=== PATIENT | female | born 1950 | race Caucasian/White ===

== ENCOUNTER 2018-03-29 07:57 | Day surgery (SDC) | payer OTHER ==
[2018-03-26 14:07] LABS: Absolute Lymphocytes (CBC) 1.6 K/uL (0.7-4.9); Absolute Monocytes 0.5 K/uL (0.1-1.3); Absolute Neutrophil 5.8 K/uL (1.8-8.0); Basophils % 0.3 % (0-1.3); Eosinophils % 0.9 % (0-4.4); Lymphocytes % 20.1 % (15.3-44.8); MPV 8.9 fL (7.6-11.3); Monocytes % 6.5 % (3.3-12.3); RBC Red Blood Cell Count 4.49 M/uL (3.86-4.86)
[2018-03-26 14:16] LABS: BUN Blood Urea Nitrogen 12 mg/dL (7-18); Bicarbonate 30 mmol/L (21-32); Glucose Level 95 mg/dL (74-106); Potassium 4.2 mmol/L (3.5-5.1); Sodium Level 140 mmol/L (136-145)
--- NOTE | 2018-03-26 14:36 | RAD REPORT ---
EXAM DESCRIPTION: RAD - Chest Pa And Lat (2 Views) - 03/26/2018 2:17 pm CLINICAL HISTORY: preop for surgery Chest pain. COMPARISON: Chest Single View dated 01/18/2017; Chest Single View dated 06/20/2016; Chest Single View dated 06/19/2016; CHEST SINGLE VIEW dated 03/23/2015 FINDINGS: The lungs are clear. The heart is upper limit of normal in size. No displaced fractures. A ortic atherosclerosis.
--- NOTE | 2018-03-26 21:21 | EKG ---
Test Date: 2018-03-26 Test Time: 13:52:03 Service Vehicle Operator: SE MEASUREMENT RESULTS: Intervals: Rate: 62 CO: 132 QRSD: 80 QT: 406 QTc: 412 [place]: P: 77 CO: 132 QRS: 52 T: 65 INTERPRETIVE STATEMENTS: Normal sinus rhythm Normal ECG Compared to ECG 01/19/2017 02:42:57 Sinus bradycardia no longer present Sinus arrhythmia no longer present Incomplete right bundle-branch block no longer present Electronically Signed On 03-26-18 21:20:16 [employer]ODY SHOP SUPERVISOR by Dipak Haines
[~2018-03-29 07:57] MED LIST: LEVOFLOXACIN 750MG/D5W 150 ML IV SCH
[2018-03-29] MEDS ORDERED: Levofloxacin 750mg IV 750 MG/150 ML BAG IV ONE (08:21)
[2018-03-29] MEDS: Ringers Lactate 1,000 ML IV ONE ×2 (08:25→09:45)
[2018-03-29] MEDS ORDERED: BUPIVACAINE 0.5% PF 10 ML VIAL ONE (08:41)
[2018-03-29] MEDS ORDERED: SCOPOLAMINE HYDROBROMIDE PATCH TD ONE (09:05)
[2018-03-29] MEDS ORDERED: FENTANYL CITR 100 MCG/2 ML ONE (09:49)
[2018-03-29] MEDS ORDERED: LIDOCAINE 1% MPF 5 ML VIAL ONE (09:49)
[2018-03-29] MEDS ORDERED: MIDAZOLAM HCL 2 MG/2 ML INJ ONE (09:49)
[2018-03-29] MEDS ORDERED: PROPOFOL 200 MG/20 ML VIAL IV ONE (09:49)
--- NOTE | 2018-03-29 10:10 | P.BOP ---
Preoperative diagnosis: infective back subQ with abscess Postoperative diagnosis: same Primary procedure: Excision of infected back subQ [id number] with abscess Estimated blood loss: <10cc Specimen: infected Findings: mass and abscess Anesthesia: General Complications: None Drain(s): Other Transferred to: Recovery Room Condition: Good
[2018-03-29] MEDS ORDERED: EPHEDRINE SULF 50 MG/10 ML SYR ONE (10:20)
[2018-03-29] MEDS ORDERED: NS 0.9% VIAL 10 ML ONE (10:20)
[2018-03-29] MEDS ORDERED: KETOROLAC 30 MG/ML INJ ONE (10:23)
[2018-03-29] MEDS ORDERED: ONDANSETRON 4 MG/2 ML VIAL ONE ×2 (10:24→11:18)
[2018-03-29] MEDS ORDERED: CODEINE 30MG/APAP 300MG TAB ONE (11:48)
[2018-03-29 12:16] VITALS: BP 120/88; TEMP 98.5; O2SAT 97
--- NOTE | 2018-03-29 22:30 | OP ---
Date of Procedure: 03/29/2018 Surgeon: Jesse Huerta MD Preoperative Diagnosis: Infected back subcutaneous mass with abscess. Postoperative Diagnosis: Infected back subcutaneous mass with abscess. Procedure: Excision of infected back subcutaneous mass 5 x 4 x 2 cm with abscess drainage. Estimated Blood Loss: Less than 10 cc. Specimen: Infected mass with abscess. Findings: Mass with abscess. Anesthesia: General plus local. Wound Care: Wet-to-dry, normal saline. Indications: This is the case of a 67-year-old patient who comes to us with back mass red, warm, inc reasing in size and shape and tenderness. The patient was diagnosed with infected back mass with abs cess. The patient wanted the mass excised and abscess relieved, so we are going to combine 2 of them together with benefits, alternatives, and risks including, but not limited to infection, bleeding, d amage to adjacent structures as complication, nonhealing wound, CA, and even . She also underst ands this might not relieve any symptoms. She might need more than one surgical intervention. She u nderstood, signed a consent. Description Of Procedure: The patient was brought to the operating room, placed in supine position. Anesthesia was done without complication. Back was prepped and draped in a sterile fashion. A time -out was called. Area of concern was previously marked by me and the patient in the holding room. T he patient's areas all infected, so we proceeded to use a knife and a Bovie cauterizer to remove the mass all the way down to some of the fascia of the muscle comes with the specimen. Muscle system not to be penetrated with abscess. Loculations were explored and opened. The mass was completely excis ed. Cultures were obtained of the purulent discharge. The area was profusely irrigated. Hemostasis obtained. Local anesthetics applied and the area was packed with wet-to-dry dressing. The patient tolerated the procedure well. The patient was sent to recovery room in stable condition. CRYSTAL/SHALA Voice ID: [id number] Report ID: [id number]
--- NOTE | 2018-03-29 22:30 | DS ---
Date of Discharge: 03/29/2018 Diagnosis: Infected back mass with abscess. Procedure: Excision of infected back subcutaneous mass with abscess drainage. Disposition: Home. Discharge Instructions: The patient will be taking Levaquin and she has multi allergies to multiple medications except Levaquin. Wet-to-dry dressing daily. Follow up in my office in 1 week. Call for appointment [phone]. CRYSTAL/SHALA Voice ID: [id number] Report ID: [id number]
== END 2018-03-29 12:30 | disposition home or self-care (01) ==
LOC: OR 07:57
PROVIDERS: ATTEND Surgery
PROC: 0J970ZZ Drainage of Back Subcutaneous Tissue and Fascia, Open Approach (ICD-10-PCS; 2018-03-29)
PROC: 0JB70ZZ Excision of Back Subcutaneous Tissue and Fascia, Open Approach (ICD-10-PCS; principal; 2018-03-29 09:30)
DX: L72.0 Epidermal cyst (principal); L02.212 Cutaneous abscess of back [any part, except buttock and flank]; I10 Essential (primary) hypertension; J45.909 Unspecified asthma, uncomplicated; M19.90 Unspecified osteoarthritis, unspecified site; M79.7 Fibromyalgia; R53.82 Chronic fatigue, unspecified; K21.9 Gastro-esophageal reflux disease without esophagitis; E78.00 Pure hypercholesterolemia, unspecified; Z88.8 Allergy status to other drugs, medicaments and biological substances; Z88.3 Allergy status to other anti-infective agents; Z91.041 Radiographic dye allergy status; Z91.040 Latex allergy status; Z82.49 Family history of ischemic heart disease and other diseases of the circulatory system; Z83.3 Family history of diabetes mellitus; Z80.0 Family history of malignant neoplasm of digestive organs; Z80.52 Family history of malignant neoplasm of bladder
CPT/HCPCS: 10060; 11406; 36415; 71046; 80048; 85025; 87070; 87075; 87205; 88304; 93005; J2250; J2405 ×2; J2704; J3010

== ENCOUNTER 2024-12-29 17:51 | Emergency (ER) | payer OTHER ==
[2024-12-29] MEDS ORDERED: MORPHINE 2 MG/ML SYR ONE (18:25)
[2024-12-29] MEDS ORDERED: FAMOTIDINE 20 MG/2 ML VIAL IV ONE (18:25)
[2024-12-29] MEDS ORDERED: MAGNES/ALUMIN/SIMET 30ML UCUP ONE (18:25)
[2024-12-29] MEDS ORDERED: LIDOCAINE VISCOUS 2% 10ML ORAL SOLN ONE (18:25)
[2024-12-29] MEDS ORDERED: NA CHLORIDE 0.9% 1,000 ML ONE (18:26)
--- NOTE | 2024-12-29 18:36 | RAD REPORT ---
EXAMINATION: CT ABDOMEN AND PELVIS WITHOUT CONTRAST CLINICAL INDICATION: ABD PAIN TECHNIQUE: CT abdomen and pelvis was performed, without IV contrast, as per department protocol. Axia l, sagittal and coronal reconstructions were obtained. One or more of the following dose reduction techniques were used: Automated exposure control, adjustment of the mA and kV according to the patien t size, and iterative reconstruction. Unless otherwise specified, incidental findings do not require dedicated imaging follow-up. COMPARISON: No prior exam. FINDINGS: The lack of intravenous contrast limits the sensitivity of this exam for evaluation of solid visceral organs, vascular structures, and retroperitoneum. LOWER CHEST: The visualized lung bases are clear. Small hiatal hernia. LIVER:15 mm cyst is seen inferior right lobe of the liver. The liver is otherwise unremarkable. Mary cystectomy clips. 23 mm rounded structure seen in the region of the hepatic hilum/pancreatic head, unclear etiology. SPLEEN: Normal size. No focal lesion. PANCREAS: No mass, ductal dilation, or jeniffer-pancreatic fluid. ADRENALS: Normal; no mass. KIDNEYS AND URETERS: Normal size and contour. No hydronephrosis. Multiple bilateral renal cysts, simp le in appearance. URINARY BLADDER: Normal contour. GASTROINTESTINAL TRACT: No evidence of bowel obstruction, significant free fluid, free air or abscess . Sigmoid diverticulosis coli. Postsurgical changes of gastric bypass. APPENDIX: Appendix not visualized, but no inflammatory changes in region of appendix. LYMPH NODES: No lymphadenopathy. MUSCULOSKELETAL: Moderate multilevel spinal degenerative changes. ADDITIONAL FINDINGS: Aortic atherosclerosis. IMPRESSION: 23 mm rounded near the hepatic hilum and pancreatic head is of unclear etiology and significance.It i s unlikely to represent an acute finding. Follow-up nonemergent contrast-enhanced CT or MRI may be considered. Sigmoid diverticulosis coli.
[2024-12-29 18:43] LABS: Absolute Lymphocytes (CBC) 0.8 K/uL (0.7-4.9); Hematocrit 36.9 % (36.0-45.0); Hemoglobin 12.1 g/dL (12.0-15.0); MCH 30.6 pg (27.0-35.0); MCHC 32.9 g/dL (32.0-36.0); MCV 92.9 fL (80-100); MPV 8.1 fL (7.6-11.3); Nucleated RBC Absolute Count 0.0 (0-0); Nucleated Red Blood Cells % 0.0 % (0-0); RBC Red Blood Cell Count 3.97 M/uL (3.86-4.86); White Blood Count 10.00 thou/uL (4.3-10.9)
[2024-12-29 19:03] LABS: ALT/SGPT 132.0 U/L (13-56); AST/SGOT 413.0 U/L (15-37); Albumin 3.1 g/dL (3.4-5.0); Albumin/Globulin Ratio 0.7 (1.1-1.8); Alkaline Phosphatase 228.0 U/L (45-117); Anion Gap 8.5 mEq/L (5.0-15.0); BUN Blood Urea Nitrogen 17.0 mg/dL (7-18); Globulin 4.2 g/dL (2.3-3.5); Glucose Level 113.0 mg/dL (74-106); Lipase 13.0 U/L (13-75); Potassium 3.5 mEq/L (3.5-5.1); Troponin High Sensitivity 11.0 pg/mL (<58.9)
--- NOTE | 2024-12-29 19:26 | EDPHYS ---
Physician Documentation [facility] Name: Emani Prakash Age: 74 yrs Sex: Female : 1950 Arrival Date: 12/29/2024 Time: 17:51 Bed 15 Private MD: ED Physician Benoit Miner HPI: 12/29 18:38 This 74 yrs old Female presents to ER via EMS with complaints of Epigastric dr5 Pain. 18:38 The patient presents with abdominal pain in the epigastric area. Onset: The dr5 symptoms/episode began/occurred acutely. Patient is a 74-year-old female with history of fibromyalgia, hypertension, sleep apnea, ulcers with cholecystectomy, appendectomy, complete hysterectomy, gastric bypass surgery coming in with epigastric abdominal pain that started when she was walking in her garage. Patient reports pain was so bad that she had to call 911. Patient was given IV Tylenol and normal saline and Reglan IV prior to arrival which improved her pain.. Historical: - Allergies: 18:13 Bactrim; rg5 18:13 Iodine; rg5 18:13 Latex; rg5 - PMHx: 18:13 Fibromyalgia; Hypertension; Sleep Apnea; Ulcers; rg5 - Immunization history:: Adult Immunizations unknown. - Infectious Disease History:: Denies. - Social history:: Smoking status: Patient denies any tobacco usage or history of. ROS: 18:38 Constitutional: as per hpi dr5 Exam: 18:38 Constitutional: This is a well developed, well nourished patient who is awake, alert, dr5 and in no acute distress. Head/Face: Normocephalic, atraumatic. Eyes: Pupils equal round and reactive to light, extra-ocular motions intact. Lids and lashes normal. Conjunctiva and sclera are non-icteric and not injected. Cornea within normal limits. Periorbital areas with no swelling, redness, or edema. Neck: Trachea midline, no thyromegaly or masses palpated, and no cervical lymphadenopathy. Supple, full range of motion without nuchal rigidity, or vertebral point tenderness. No Meningismus. Chest/axilla: Normal chest wall appearance and motion. Nontender with no deformity. No lesions are appreciated. Cardiovascular: Regular rate and rhythm with a normal S1 and S2. Normal PMI, no JVD. No pulse deficits. Respiratory: Lungs have equal breath sounds bilaterally, clear to auscultation. No rales, rhonchi or wheezes noted. No increased work of breathing, no retractions or nasal flaring. 18:38 Abdomen/GI: Inspection: abdomen appears normal, Bowel sounds: normal, Palpation: moderate abdominal tenderness, in the epigastric area, Vital Signs: 18:13 BP 182 / 96; Pulse 81; Resp 18; Pulse Ox 100% ; Pain 5/10; rg5 19:34 BP 174 / 86; Pulse 77; Resp 18; Pulse Ox 97% ; dr5 19:35 BP 174 / 84; Pulse 77; Resp 18; Pulse Ox 98% ; rg5 19:39 Temp 98.5(O); dr5 19:56 Weight 63.05 kg; Height 4 ft. 10 in. ; dr5 20:37 BP 171 / 74; Pulse 81; Resp 18; Pulse Ox 98% ; Pain 7/10; rg5 21:30 BP 169 / 88; Pulse 75; Resp 18; Pulse Ox 100% ; rg5 22:10 BP 181 / 96; Pulse 94; Resp 18; Pulse Ox 97% ; rg5 22:43 BP 164 / 78; Pulse 69; Resp 18; Pulse Ox 99% on R/A; rg5 23:12 BP 138 / 66; Pulse 68; Resp 18; Pulse Ox 97% on R/A; rg5 12/30 00:00 BP 127 / 68; Pulse 67; Resp 18; Pulse Ox 99% on R/A; Pain 0/10; rg5 12/29 19:56 Body Mass Index 29.05 (63.05 kg, 147.32 cm) dr5 12/29 18:13 Pain Scale: Adult rg5 20:37 Pain Scale: Adult rg5 12/30 00:00 Pain Scale: Adult rg5 MDM: 12/29 18:01 Medical Screening Exam initiated dr5 19:28 Differential diagnosis: gastritis, non-specific abd pain, Transaminitis, mass. Data dr5 reviewed: vital signs, nurses notes, lab test result(s), cardiac enzymes, troponin i, CBC, white blood cell count, hemoglobin, hematocrit, platelets, electrolytes, sodium, potassium, chloride, serum bicarbonate, BUN, creatinine, serum glucose, hepatic panel, EKG, radiologic studies, CT scan. Consideration of Admission/Observation Patient was admitted/placed on observation. Independent interpretation of the following test(s) in the Emergency Department CT Scan: My interpretation is Independent interpretation of CT shows large mass around pancreatic head. Historians other than the Patient: Spouse/Significant Other: . Daughter/Son: Daughter. Care significantly affected by the following chronic conditions: Pharmacology, hypertension, sleep apnea, ulcers. Care significantly affected by the following Social Determinants of Health: Poor access to healthcare and/or lack of insurance, Poor access to transportation, Problems related to employment. Counseling: I had a detailed discussion with the patient and/or guardian regarding the historical points, exam findings, and any diagnostic results supporting the discharge/admit diagnosis, the presence of at least one elevated blood pressure reading (>120/80) during this emergency department visit, lab results, radiology results, the need to transfer to another facility, for higher level of care, [facility] does not immediately have the required specialist, Patient requires GI services. Medication response: Morphine, normal saline, GI cocktail, Pepcid. Response to treatment: the patient's symptoms have markedly improved after treatment. Awaiting: transfer to another facility. ED course: Discussed with patient as well as daughter and in room the need for transfer to other facility given we do not have GI here. All labs discussed with patient at length including transaminitis and unclear 23 mm cystic structure.. 20:05 Management of patient was discussed with the following: Hospitalist: Dr. Watters - [facility] Hospitalist who accepted patient.. 12/29 18:01 Order name: CBC with Diff; Complete Time: 19: [facility] 12/29 18:01 Order name: CMP; Complete Time: 19: [facility] 12/29 18: Order name: Lipase; Complete Time: 19: [facility] 12/29 18:01 Order name: Troponin High Sensitivity; Complete Time: 19: [facility] 12/29 18:01 Order name: CT Abd/Pelvis - Without Contrast; Complete Time: 18:37 [facility] 12/29 19:07 Order name: US Liver Only; Complete Time: 11:26 [facility] 12/29 18:01 Order name: EKG; Complete Time: 18: [facility] 12/29 18:01 Order name: IV Saline Lock; Complete Time: 18:19 [facility] 12/29 18:01 Order name: Labs collected and sent; Complete Time: 18:44 [facility] 12/29 18: Order name: EKG - Nurse/Tech; Complete Time: 18:44 dr5 EC:42 Rate is 79 beats/min. Rhythm is regular. QRS [place] is Normal. [place] interval is normal at dr5 156 msec. QRS interval is normal at 86 msec. QT interval is normal at 400 msec. Clinical impression: Normal ECG and No evidence of ischemia. Administered Medications: 18:05 Drug: morphine IVP or IV 4 mg IVP once over 4 mins Route: IVP; Infused Over: 4 mins; rg5 Site: right antecubital; 20:00 Follow up: Response: No adverse reaction; Pain is decreased rg5 18:05 Drug: NS 0.9% IV 1000 ml IV at 1 bolus Per protocol; to be given as a bolus over 60 rg5 minutes Route: IV; Rate: 1 bolus; Site: right antecubital; 20:00 Follow up: IV Status: Completed infusion; IV Intake: 1000ml rg5 18:25 Drug: Famotidine IVP 20 mg IVP once; dilute with 10 mL 0.9% NaCl; give over 2 minutes rg5 Route: IVP; Site: right antecubital; 20:00 Follow up: Response: No adverse reaction; Pain is decreased rg5 18:43 Drug: GI Cocktail without - (Maalox PO 30 ml, Lidocaine Mucous Membrane 2 % 15 rg5 ml) PO once Route: PO; 20:01 Follow up: Response: No adverse reaction rg5 20:11 Drug: HYDROmorphone IVP 0.5 mg IVP once Route: IVP; Site: right antecubital; rg5 20:37 Follow up: Response: No adverse reaction; Pain is decreased rg5 21:35 Drug: cloNIDine PO 0.1 mg PO once Route: PO; rg5 22:14 Follow up: Response: No adverse reaction; Blood pressure is lowered rg5 22:36 Drug: metoCLOPramide IVP 10 mg IVP once; over 1 to 2 minutes Route: IVP; Site: right rg5 antecubital; 23:07 Follow up: Response: No adverse reaction rg5 22:40 Drug: cloNIDine PO 0.1 mg PO once Route: PO; rg5 23:07 Follow up: Response: No adverse reaction; Blood pressure is lowered rg5 Disposition: 12/30 03:13 Co-signature as Attending Physician, Benoit Miner MD I agree with the assessment sp4 and plan of care. I reviewed the patient's care provided by Advanced Practice Provider \T\ agree w/ the diagnosis \T\ care plan. I personally saw the pt \T\ performed a substantive portion of the visit, incldng all aspects of the (History/Exam/Medical Decision Making). Disposition Summary: 12/29/24 19:26 Transfer Ordered Notes: Transfer Location: [facility] dr5 Reason: Higher level of care dr5 Condition: Stable dr5 Problem: new dr5 Symptoms: have worsened dr5 Accepting Physician: Carissa Toney(12/30/24 00:08) rg5 Diagnosis - Nonspecific elevation of levels of transaminase and lactic acid dehydrogenase [LDH] dr5 - Elevated AST, ALT, ALK - Disease of pancreas, unspecified - 23 mm rounded structure of pancreatic head dr5 Forms: - Medication Reconciliation Form dr5 - SBAR form dr5 Signatures: Dispatcher [employer] EDBenoit Brooks MD MD sp4 Holley Tai Rommel, RN RN rg5 Fred Garcia FNP-C URINALYSIS TECHNICIAN-Cdr5 Corrections: (The following items were deleted from the chart) 12/29 23:15 19:26 [facility] dr5 vk 12/30 00:08 12/29 23:15 Carissa Toney vk rg5
--- NOTE | 2024-12-29 19:26 | ER ---
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 rg5 Coronavirus screen: Client denies travel out of the [place] in the last 14 days. Ebola Screen: Patient negative for fever greater than or equal to 101.5 degrees Fahrenheit, and additional compatible Ebola Virus Disease symptoms Patient denies exposure to infectious person. Patient denies travel to an Ebola-affected area in the 21 days before illness onset. Initial Sepsis Screen: Does the patient meet any 2 criteria? No. Patient's initial sepsis screen is negative. Does the patient have a suspected source of infection? No. Patient's initial sepsis screen is negative. Risk Assessment: Do you want to hurt yourself or someone else? Patient reports no desire to harm self or others. Onset of symptoms was December 29, 2024. Care prior to arrival: Medication(s) given: Normal saline infusion, 250 Tylenol, 650 mg, IV zofran 4 mg, iv IV initiated. 18 GA, in the right antecubital area, Glucose check: 114. 18:10 Method Of Arrival: EMS: [facility] 5 18:10 Acuity: DULCE 3 rg5 Triage Assessment: 18:13 General: Appears in no apparent distress. Behavior is calm, cooperative, appropriate rg5 for age. Pain: Complains of pain in epigastric area. Neuro: Level of Consciousness is awake, alert, obeys commands, Oriented to person, place, time, situation. Cardiovascular: Patient's skin is warm and dry. Respiratory: Airway is patent Trachea midline. GI: Reports upper abdominal pain, nausea, vomiting. : No signs and/or symptoms were reported regarding the genitourinary system. Derm: Skin is intact, Skin is dry, Skin is normal. Musculoskeletal: Circulation, motion, and sensation intact. Range of motion: intact in all extremities. Historical: - Allergies: 18:13 Bactrim; rg5 18:13 Iodine; rg5 18:13 Latex; rg5 - PMHx: 18:13 Fibromyalgia; Hypertension; Sleep Apnea; Ulcers; rg5 - Immunization history:: Adult Immunizations unknown. - Infectious Disease History:: Denies. - Social history:: Smoking status: Patient denies any tobacco usage or history of. Screenin:17 [facility] ED Fall Risk Assessment (Adult) History of falling in the last 3 months, rg5 including since admission Yes- physiologic fall (2 pts) Confusion or Disorientation No (0 pts) Intoxicated or Sedated No (0 pts) Impaired Gait Yes (1 pt) Mobility Assist Device Used Yes (1 pt) Altered Elimination No (0 pt) Score/Fall Risk Level 3 or more points = High Risk Oriented to surroundings, Maintained a safe environment, Hourly rounding (assess needs \T\ fall precautionary measures) done. Abuse screen: Denies threats or abuse. Nutritional screening: No deficits noted. Tuberculosis screening: No symptoms or risk factors identified. Assessment: 18:17 Reassessment: No changes from previously documented assessment. General: Appears in no rg5 apparent distress. GI: Reports lower abdominal pain, nausea, vomiting. 19:20 Reassessment: No changes from previously documented assessment. Patient and/or family rg5 updated on plan of care and expected duration. Pain level reassessed. Patient is alert, oriented x 3, equal unlabored respirations, skin warm/dry/pink. 20:37 Reassessment: No changes from previously documented assessment. Patient and/or family rg5 updated on plan of care and expected duration. Pain level reassessed. Patient is alert, oriented x 3, equal unlabored respirations, skin warm/dry/pink. 21:25 Reassessment: Patient and/or family updated on plan of care and expected duration. Pain rg5 level reassessed. Patient is alert, oriented x 3, equal unlabored respirations, skin warm/dry/pink. 22:30 Reassessment: Patient and/or family updated on plan of care and expected duration. Pain rg5 level reassessed. Patient is alert, oriented x 3, equal unlabored respirations, skin warm/dry/pink. 23:21 Reassessment: Patient and/or family updated on plan of care and expected duration. Pain rg5 level reassessed. Patient is alert, oriented x 3, equal unlabored respirations, skin warm/dry/pink. 12/30 00:06 Reassessment: Patient and/or family updated on plan of care and expected duration. Pain rg5 level reassessed. Patient is alert, oriented x 3, equal unlabored respirations, skin warm/dry/pink. Patient states feeling better. Patient states symptoms have improved. Vital Signs: 12/29 18:13 BP 182 / 96; Pulse 81; Resp 18; Pulse Ox 100% ; Pain 5/10; rg5 19:34 BP 174 / 86; Pulse 77; Resp 18; Pulse Ox 97% ; dr5 19:35 BP 174 / 84; Pulse 77; Resp 18; Pulse Ox 98% ; rg5 19:39 Temp 98.5(O); dr5 19:56 Weight 63.05 kg; Height 4 ft. 10 in. ; dr5 20:37 BP 171 / 74; Pulse 81; Resp 18; Pulse Ox 98% ; Pain 7/10; rg5 21:30 BP 169 / 88; Pulse 75; Resp 18; Pulse Ox 100% ; rg5 22:10 BP 181 / 96; Pulse 94; Resp 18; Pulse Ox 97% ; rg5 22:43 BP 164 / 78; Pulse 69; Resp 18; Pulse Ox 99% on R/A; rg5 23:12 BP 138 / 66; Pulse 68; Resp 18; Pulse Ox 97% on R/A; rg5 12/30 00:00 BP 127 / 68; Pulse 67; Resp 18; Pulse Ox 99% on R/A; Pain 0/10; rg5 12/29 19:56 Body Mass Index 29.05 (63.05 kg, 147.32 cm) dr5 12/29 18:13 Pain Scale: Adult rg5 20:37 Pain Scale: Adult rg5 12/30 00:00 Pain Scale: Adult rg5 ED Course: 12/29 17:59 Patient arrived in ED. mr 18:00 [facility] 18:00 Francisco Javier Watters MD is Attending Physician. dr5 18:10 Josias Zamora, SUKHJINDER is Primary Nurse. rg5 18:13 Triage completed. rg5 18:13 Arm band placed on. rg5 18:17 CT Abd/Pelvis - Without Contrast In Process Unspecified. EDMS 18:17 Patient has correct armband on for positive identification. Bed in low position. Call rg5 light in reach. Side rails up X 1. Adult w/ patient. Door closed. Warm blanket given. 18:17 Maintain EMS IV. Dressing intact. Good blood return noted. Site clean \T\ dry. Gauge \T\ rg 5 site: 18g Right AC. Patient maintains SpO2 saturation greater than 95% on room air. 19:34 called [facility]'s for transfer talked to Natali. sp 20:00 MD consult. vk 20:07 US Liver Only In Process Unspecified. EDMS 20:35 [facility] Natali called and advised patient has room however it is dirty and will call vk back with MOT as soon as its cleaned. 22:29 Attending Physician role handed off by Francisco Javier Watters MD sp4 22:29 Benoit Miner MD is Attending Physician. sp4 22:38 called [facility] in regards to room update, Spoke with Natali she advised room is still vk dirty will call back with update. 23:08 Patient was accepted to [facility] to Dr. Watters, T \T\2004 accepting admin Natali G \T\[id number] vk Patient room assignment 18[facility] 1809 Report # [phone] for facesheet. 23:28 No provider procedures requiring assistance completed. Patient transferred, IV remains rg5 in place. intact, No redness/swelling at site. Administered Medications: 18:05 Drug: morphine IVP or IV 4 mg IVP once over 4 mins Route: IVP; Infused Over: 4 mins; rg5 Site: right antecubital; 20:00 Follow up: Response: No adverse reaction; Pain is decreased rg5 18:05 Drug: NS 0.9% IV 1000 ml IV at 1 bolus Per protocol; to be given as a bolus over 60 rg5 minutes Route: IV; Rate: 1 bolus; Site: right antecubital; 20:00 Follow up: IV Status: Completed infusion; IV Intake: 1000ml rg5 18:25 Drug: Famotidine IVP 20 mg IVP once; dilute with 10 mL 0.9% NaCl; give over 2 minutes rg5 Route: IVP; Site: right antecubital; 20:00 Follow up: Response: No adverse reaction; Pain is decreased rg5 18:43 Drug: GI Cocktail without - (Maalox PO 30 ml, Lidocaine Mucous Membrane 2 % 15 rg5 ml) PO once Route: PO; 20:01 Follow up: Response: No adverse reaction rg5 20:11 Drug: HYDROmorphone IVP 0.5 mg IVP once Route: IVP; Site: right antecubital; rg5 20:37 Follow up: Response: No adverse reaction; Pain is decreased rg5 21:35 Drug: cloNIDine PO 0.1 mg PO once Route: PO; rg5 22:14 Follow up: Response: No adverse reaction; Blood pressure is lowered rg5 22:36 Drug: metoCLOPramide IVP 10 mg IVP once; over 1 to 2 minutes Route: IVP; Site: right rg5 antecubital; 23:07 Follow up: Response: No adverse reaction rg5 22:40 Drug: cloNIDine PO 0.1 mg PO once Route: PO; rg5 23:07 Follow up: Response: No adverse reaction; Blood pressure is lowered rg5 Medication: 18:17 VIS not applicable for this client. rg5 Intake: 20:00 IV: 1000ml; Total: 1000ml. rg5 Outcome: 19:26 ER care complete, transfer ordered by . dr5 12/30 00:07 Transferred by ground EMS to [facility], rg5 Condition: stable Instructed on the need for transfer, 00:08 Patient left the ED. rg5 Signatures: Dispatcher [employer] EDMS Fawn Llanos Mary, Benoit Boswell MD MD sp4 Kruse, Vivian vk Gallardo, Rommel, RN RN rg5 Fred Garcia, SIVA-C FLUID DYNAMICIST-Cdr5 Corrections: (The following items were deleted from the chart) 12/29 19:37 19:31 called [facility]
[2024-12-29] MEDS ORDERED: HYDROMORPHONE HCL 0.5 MG/0.5 ML INJ ONE (20:09)
--- NOTE | 2024-12-29 20:31 | RAD REPORT ---
EXAMINATION: Ultrasound of the liver CLINICAL HISTORY: RUQ Abdominal Pain / Increased Liver Eznymes COMPARISON: None. FINDINGS: Liver: Visualized portions of the liver demonstrate diffuse heterogenous appearance. Evidence of smal l hepatic cysts. Gallbladder: Surgically absent. Bile ducts: Dilated common duct.. Intrahepatic biliary tree mildly prominent. Common bile duct measur es 11 mm. Fluid: No ascites. Spleen: Normal size. IMPRESSION: Dilated common bile duct measuring 11 mm. Intrahepatic biliary tree mildly prominent. Follow-up MRCP would be recommended. Diffusely heterogenous appearance of the liver parenchyma suggesting chronic inflammation.
[2024-12-29] MEDS ORDERED: METOCLOPRAMIDE 10 MG/2mL INJ ONE (22:33)
[2024-12-30 00:18] VITALS: TEMP 98.5
[2024-12-30 00:25] VITALS: BP 127/68; O2SAT 99
== END 2024-12-30 00:08 | disposition short-term general hospital (02) ==
LOC: ER 17:51
DX: R74.01 Elevation of levels of liver transaminase levels (principal); R74.02 Elevation of levels of lactic acid dehydrogenase [LDH]; K86.9 Disease of pancreas, unspecified
CPT/HCPCS: 96361; 93005; 85025; 36415; 84484; 83690; 80053; 74176; 76705; 96375; 96374; 99285; J2765; J2270; J1171; J7030